=== PATIENT | female | born 1980 | race Caucasian/White ===

== ENCOUNTER 2016-07-06 09:54 | Outpatient (CLI) | payer BC ==
[~2016-07-06] VITALS: Ht 157.5 cm; Wt 60.5 kg
[~2016-07-06 09:54] MED LIST: NO HOME MEDICATIONS; OMNICEF 300MG300 MG PO; OSCAL 500 TAB500 MG PO; PRENATAL VITAMI1 TA5 PO; ZITHROMAX 250M250 MG PO
[2016-07-06 10:30] VITALS: BP 103/58; PULSE 78; TEMP 97.9
[2016-07-06 11:34] VITALS: BP 103/58; PULSE 78; TEMP 97.9
[2016-07-06 12:05] LABS: PH 9 (5-8); SQUAMOUS EPITHELIAL 0-2 /hpf; URINE APPEARANCE Clear; URINE BACTERIA None Seen /hpf; URINE BILIRUBIN Negative (NEGATIVE); URINE BLOOD 2+ (NEGATIVE); URINE COLOR Yellow; URINE GLUCOSE Negative (NEGATIVE); URINE KETONE Negative (NEGATIVE); URINE RBC >50 /hpf; URINE UROBILINOGEN Negative (NEGATIVE); URINE WBC >50 /hpf
== END 2016-07-06 13:25 | disposition home or self-care (01) ==
LOC: LDRO 09:54
PROVIDERS: Obstetrics & Gynecology
DX: O26.893 Other specified pregnancy related conditions, third trimester (principal); R11.2 Nausea with vomiting, unspecified; R10.9 Unspecified abdominal pain; R30.0 Dysuria; Z3A.33 33 weeks gestation of pregnancy
CPT/HCPCS: J2405; J7120

== ENCOUNTER 2016-08-12 15:45 | Inpatient (IN) | payer BC ==
[~2016-08-12] VITALS: Ht 157.6 cm; Wt 63.6 kg
[2016-08-19] VITALS (18 sets, daily range): BP systolic 100–131; BP diastolic 54–88; PULSE 56–82; TEMP 97.8–98.2
[2016-08-19] MEDS ORDERED: ZOFRAN8 MG PO (06:49)
[2016-08-19 07:08] LABS: BASO % 0.3 % (0.0-2.0); EOS # 0.1 (0.0-0.7); EOS % 1.3 % (0-4.0); GRAN # 8.1 (1.4-6.5); GRAN % 73.6 % (42.2-75.2); LYMPH # 1.9 (1.2-3.4); LYMPH % 16.9 % (20.0-51.0); MEAN CELL VOLUME 91 fl (80.0-100.0); MEAN CORPUSCULAR HGB CONC 33 g/dl (33.0-37.0); MEAN PLATELET VOLUME 11.6 fl (7.4-10.4); MONO # 0.6 (0.1-0.6); MONO % 5.7 % (1.7-9.3); PLATELET COUNT 206 K/mm3 (130-400); RED BLOOD COUNT 3.67 M/mm3 (4.10-5.30); REDCELL DISTRIBUTION WIDTH-CV 13.8 % (11.5-14.5)
[2016-08-19 07:34] LABS: HEMATOCRIT 33.3 % (37.0-47.0); MEAN CORPUSCULAR HEMOGLOBIN 30 pg (27.0-31.0)
[2016-08-20 04:15] VITALS: BP 122/70; PULSE 74; TEMP 98.2
[2016-08-20 07:30] VITALS: BP 128/72; PULSE 60; TEMP 97.8
[2016-08-20] MEDS ORDERED: IBU800 M1 PO (08:27)
[2016-08-20] MEDS ORDERED: PERCOCET 325 MG1 TA2 PO (08:27)
[2016-08-20 16:29] VITALS: BP 106/73; PULSE 78; TEMP 97.7
== END 2016-08-20 17:45 | disposition home or self-care (01) | DRG 766 ==
LOC: OB 08-19 05:40 → LDR 08-19 14:37 → OB 08-20 17:45 → EDSTATUS 08-21 14:34 → LDR 08-21 14:36 → LDRO 08-21 15:44
PROVIDERS: Obstetrics & Gynecology
PROC: 10D00Z1 Extraction of Products of Conception, Low, Open Approach (ICD-10-PCS; principal; 2016-08-19)
DX: O34.211 Maternal care for low transverse scar from previous cesarean delivery (principal); N85.8 Other specified noninflammatory disorders of uterus; Z3A.39 39 weeks gestation of pregnancy; Z37.0 Single live birth
CPT/HCPCS: J1885; J2175; J2270; J2370; J2405; J2590; J2704; J7120

== ENCOUNTER 2018-07-27 05:27 | Inpatient (IN) | payer BC ==
[2018-07-27] VITALS (20 sets, daily range): BP systolic 70–113; BP diastolic 46–72; PULSE 60–77; TEMP 97.4–98.4
[~2018-07-27] VITALS: Ht 157.5 cm; Wt 62.7 kg
[~2018-07-27 05:27] MED LIST changes: +IBU800 M1 PO; +PERCOCET 325 MG1 TA2 PO; +ZOFRAN8 MG PO
[2018-07-27 06:01] LABS: BASO % 0.3 % (0.0-2.0); EOS # 0.1 (0.0-0.7); EOS % 0.9 % (0-4.0); GRAN # 9.9 (1.4-6.5); GRAN % 74.9 % (42.2-75.2); HEMOGLOBIN 10.9 g/dl (12.5-16.0); LYMPH # 2.3 (1.2-3.4); LYMPH % 17.1 % (20.0-51.0); MEAN CELL VOLUME 90 fl (80.0-100.0); MEAN CORPUSCULAR HEMOGLOBIN 30 pg (27.0-31.0); MEAN CORPUSCULAR HGB CONC 33 g/dl (33.0-37.0); MEAN PLATELET VOLUME 11.1 fl (7.4-10.4); MONO # 0.7 (0.1-0.6); MONO % 5.5 % (1.7-9.3); PLATELET COUNT 255 K/mm3 (130-400); RED BLOOD COUNT 3.67 M/mm3 (4.10-5.30); REDCELL DISTRIBUTION WIDTH-CV 14.4 % (11.5-14.5)
[2018-07-27] MEDS ORDERED: ZOFRAN8 MG PO (07:04)
[2018-07-27] MEDS ORDERED: BONJESTA ER 201 EACH PO (07:05)
[2018-07-27] MEDS ORDERED: ZANTAC 150MG T150 MG PO (07:06)
[2018-07-27] MEDS ORDERED: CONCEPT DHA1 CAP PO (07:06)
[2018-07-27] MEDS ORDERED: AMOXICILLIN 8751 TAB PO (07:07)
--- NOTE | 2018-07-27 10:09 | NUR ---
Initial visit; Research Attorney offered God's blessings to mom prior to the of her baby.
[2018-07-28 00:05] VITALS: BP 123/65; PULSE 64; TEMP 98.1
[2018-07-28 05:00] VITALS: BP 101/56; PULSE 71; TEMP 98.6
[2018-07-28 07:37] VITALS: BP 118/73; PULSE 82; TEMP 96.8
--- NOTE | 2018-07-28 08:59 | NUR ---
Follow-up visit; Mom thanked for offering congratulaions for the of her daughter and for thanking her for choosing [facility].
[2018-07-28 16:33] VITALS: BP 106/63; PULSE 73; TEMP 97.4
[2018-07-28 19:40] VITALS: BP 117/73; PULSE 71; TEMP 98.6
[2018-07-29 06:50] VITALS: BP 111/67; PULSE 71; TEMP 97.6
[2018-07-29] MEDS ORDERED: MOTRIN 800800 MG/TAB PO (08:54)
[2018-07-29] MEDS ORDERED: PERCOCET 325 MG1 TA2 PO (08:54)
== END 2018-07-29 13:38 | disposition home or self-care (01) | DRG 788 ==
LOC: OB 05:27 → LDR 06:43 → OB 07-29 13:38
PROVIDERS: ADMIT Obstetrics & Gynecology
PROC: 10D00Z1 Extraction of Products of Conception, Low, Open Approach (ICD-10-PCS; principal; 2018-07-27)
DX: O34.211 Maternal care for low transverse scar from previous cesarean delivery (principal); O99.62 Diseases of the digestive system complicating childbirth; K21.9 Gastro-esophageal reflux disease without esophagitis; O99.52 Diseases of the respiratory system complicating childbirth; J30.9 Allergic rhinitis, unspecified; Z3A.39 39 weeks gestation of pregnancy; Z37.0 Single live birth
CPT/HCPCS: J0690; J1885; J2270; J2405; J2590; J2704; J3010; J7120

== ENCOUNTER 2020-09-07 18:16 | Inpatient (IN) | payer BC ==
[2020-09-07] VITALS (15 sets, daily range): BP systolic 94–116; BP diastolic 54–73; PULSE 62–113; TEMP 98–98.6
[~2020-09-07] VITALS: Ht 157.5 cm; Wt 63.6 kg
[~2020-09-07 18:16] MED LIST changes: +AMOXICILLIN 8751 TAB PO; +BONJESTA ER 201 EACH PO; +CONCEPT DHA1 CAP PO; +MOTRIN 800800 MG/TAB PO; +ZANTAC 150MG T150 MG PO
[2020-09-07 19:08] LABS: HEMOGLOBIN 11.1 g/dl (12.5-16.0); MEAN CELL VOLUME 90 fl (80.0-100.0); MEAN CORPUSCULAR HEMOGLOBIN 30 pg (27.0-31.0); MEAN CORPUSCULAR HGB CONC 34 g/dl (33.0-37.0); MEAN PLATELET VOLUME 10.9 fl (7.4-10.4); PLATELET COUNT 210 K/mm3 (130-400); RED BLOOD COUNT 3.65 M/mm3 (4.10-5.30); REDCELL DISTRIBUTION WIDTH-CV 13.7 % (11.5-14.5)
[2020-09-07 19:19] LABS: HEMATOCRIT 32.9 % (37.0-47.0)
[2020-09-07 20:07] LABS: BAND 15 % (0-10); LYMPHOCYTE 23 % (20.0-51.0); NEUTROPHILS 60 % (42.0-75.2); PLATELET ESTIMATE NORMAL (NORMAL)
--- NOTE | 2020-09-07 22:09 | NUR ---
PATIENT HAS POSTIVE ROM TEST. WILL GO BACK FOR REPEAT PER DR. LECHUGA'S ORDERS
[2020-09-08 06:30] VITALS: BP 106/52; PULSE 79; TEMP 97.5
--- NOTE | 2020-09-08 06:30 | NUR ---
Report given by Lou wilhelm.
--- NOTE | 2020-09-08 06:30 | NUR ---
Assumed care of patient. Rests in bed, alert. Denies any pain or discomfort at this time. Pad and gown changed, errol-care given. Vital signs stable.
--- NOTE | 2020-09-08 10:00 | NUR ---
Ambulates to the bathroom. Hatch catheter out. Mary-care given. Ambulates back to bed.
--- NOTE | 2020-09-08 11:30 | NUR ---
Rests in bed, alert. Ibuprofen 600 mg given as ordered.
[2020-09-08 12:30] VITALS: BP 117/59; PULSE 83; TEMP 97.5
[2020-09-08 16:15] VITALS: BP 106/69; PULSE 72; TEMP 97.6
--- NOTE | 2020-09-08 17:10 | NUR ---
Ibuprofen 600 mg given as ordered. Visits with spouse.
[2020-09-08 21:30] VITALS: BP 115/57; PULSE 75; TEMP 98.6
[2020-09-09 07:53] VITALS: BP 106/74; PULSE 75; TEMP 98.4
[2020-09-09] MEDS ORDERED: MOTRIN 600600 MG/TAB PO (12:45)
[2020-09-09] MEDS ORDERED: PERCOCET 325 MG1 TA2 PO (12:46)
== END 2020-09-09 14:30 | disposition home or self-care (01) | DRG 788 ==
LOC: LDRO 18:16 → OB 18:45 → LDR 18:45 → OB 21:25
PROVIDERS: Obstetrics & Gynecology; ADMIT Obstetrics & Gynecology
PROC: 10D00Z1 Extraction of Products of Conception, Low, Open Approach (ICD-10-PCS; principal; 2020-09-07)
DX: O34.211 Maternal care for low transverse scar from previous cesarean delivery (principal); Z3A.37 37 weeks gestation of pregnancy; Z37.0 Single live birth; O99.344 Other mental disorders complicating childbirth; F41.9 Anxiety disorder, unspecified; O71.89 Other specified obstetric trauma
CPT/HCPCS: J0690; J1885; J2590; J7120